=== PATIENT | female | born 1960 | race Hispanic/Latino ===

== ENCOUNTER 2017-12-10 05:15 | Emergency (ER) | payer OTHER ==
[2017-12-10 05:25] VITALS: RESP 20
[2017-12-10] MEDS ORDERED: Sodium Chloride 0.9% 1,000 ML IV ONE (05:29)
--- NOTE | 2017-12-10 05:37 | C.PDOC ---
History Of Present Illness 57 year old female presents to the ER with complaints of sharp lower abdominal pain, onset 2300 last night. She reports nausea and 2 episodes of loose watery diarrhea followed by an episode of bright red blood per rectum. She states she had similar episode one year ago and had colonscopy which was normal. Patient admits to constipation, but has been having normal bowel movements for the last few days. She denies any associated vomiting, chest pain or shortness of breath. She did not take any medication for her symptoms. Time Seen by Provider: 12/10/17 05:29 Chief Complaint (Nursing): Abdominal Pain History Per: Patient History/Exam Limitations: no limitations Onset/Duration Of Symptoms: Hrs Current Symptoms Are (Timing): Still Present Location Of Pain/Discomfort: RLQ, LLQ Radiation Of Pain To:: None Quality Of Discomfort: Sharp, Cramping, "Pain" Associated Symptoms: Nausea, Diarrhea. denies: Fever, Chills, Vomiting Alleviating Factors: None Last Bowel Movement: Today Abnormal Vaginal Bleeding: No Past Medical History Reviewed: Historical Data, Nursing Documentation, Vital Signs Vital Signs: Last Vital Signs Temp 97.4 F L 12/10/17 05:19 Pulse 94 H 12/10/17 05:19 Resp 20 12/10/17 05:19 BP 96/64 L 12/10/17 05:19 Pulse Ox 99 12/10/17 06:24 - Medical History PMH: No Chronic Diseases Surgical History: No Surg Hx Family History: States: No Known Family Hx - Social History Hx Alcohol Use: Yes Hx Substance Use: No - Immunization History Hx Tetanus Toxoid Vaccination: No Hx Influenza Vaccination: Yes Hx Pneumococcal Vaccination: No Review Of Systems Constitutional: Negative for: Fever, Chills Eyes: Negative for: Redness Cardiovascular: Negative for: Chest Pain Respiratory: Negative for: Shortness of Breath Gastrointestinal: Positive for: Abdominal Pain, Diarrhea, Hematochezia. Negative for: Nausea, Vomiting, Rectal Pain Genitourinary: Negative for: Dysuria Skin: Negative for: Rash Neurological: Negative for: Headache Physical Exam - Physical Exam Appears: Well, Non-toxic, No Acute Distress Skin: Normal Color, Warm, Dry Head: Atraumatic, Normacephalic Eye(s): bilateral: Normal Inspection, EOMI Nose: Normal Oral Mucosa: Moist Neck: Normal ROM, Supple Chest: Symmetrical Cardiovascular: Rhythm Regular, No Murmur Respiratory: Normal Breath Sounds, No Rales, No Rhonchi, No Wheezing Gastrointestinal/Abdominal: Bowel Sounds, Soft, Tenderness (tenderness on palpation to bilateral lower quadrants), No Mass, No Distention, No Guarding Rectal: Normal Exam, Rectal Tone (normal), No Blood Streaked Stool, No Mass, No Tenderness Back: Normal Inspection, No CVA Tenderness, No Vertebral Tenderness, No Paraspinal Tenderness Extremity: Bilateral: Atraumatic, Normal ROM Neurological/Psych: Oriented x3, Normal Speech Gait: Steady ED Course And Treatment - Laboratory Results Result Diagrams: 12/10/17 06:01 O2 Sat by Pulse Oximetry: 99 (RA) Pulse Ox Interpretation: Normal Medical Decision Making Medical Decision Making: Impression: Abdominal pain w/ bloody diarrhea Plan: * Labs * Protonix * Zofran * UA * IV Fluids * CT A/P Progress: 623 CBC shows slightly elevated WBC. Negative stool occulty. normal coags Case signed out to JOSELIN Louise, pending labs and dispo. 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 - Scribe Statement The provider has reviewed the documentation as recorded by the Scribe (Christen Mcclendon) Provider Attestation: All medical record entries made by the Scribe were at my direction and personally dictated by me. I have reviewed the chart and agree that the record accurately reflects my personal performance of the history, physical exam, medical decision making, and the department course for this patient. I have also personally directed, reviewed, and agree with the discharge instructions and disposition. Physician Patient Turnover Patient Signed Over To: Kristy Louise Handoff Comments: Pending Ct abdomen and dispo
[2017-12-10] MEDS ORDERED: Sodium Chloride 0.9% 1,000 ML ONE (05:56)
[2017-12-10 06:05] LABS: BASO # 0.1 K/uL (0.0-0.2); BASO % 0.6 % (0.0-2.0); EOS % 0.2 % (0.0-4.0); HEMOGLOBIN 13.8 g/dL (11.0-16.0); LYMPH # 1.5 K/uL (1.0-4.3); LYMPH % 13.2 % (20.0-40.0); MEAN CELL VOLUME 82.1 fL (81.0-99.0); MEAN CORPUSCULAR HEMOGLOBIN 27.5 pg (27.0-31.0); MEAN CORPUSCULAR HGB CONC 33.5 g/dL (33.0-37.0); MEAN PLATELET VOLUME 7.4 fL (7.2-11.7); MONO # 0.6 K/uL (0.0-0.8); MONO % 5.4 % (0.0-10.0); NEUT # 9.2 K/uL (1.8-7.0); NEUT % 80.6 % (50.0-75.0); RBC 5.02 Mil/uL (3.80-5.20); WHITE BLOOD COUNT 11.5 K/uL (4.8-10.8)
[2017-12-10 06:19] LABS: PROTHROMBIN TIME 10.7 SECONDS (9.7-12.2)
[2017-12-10 06:39] LABS: ALB/GLOB RATIO 1.3 (1.0-2.1); ALBUMIN 4.3 g/dL (3.5-5.0); BLOOD UREA NITROGEN 14 mg/dL (7-17); CALCIUM 9.8 mg/dl (8.6-10.4); GFR AFRICAN-AMERICAN > 60; GFR NON-AFRICAN AMERICAN > 60
[2017-12-10 06:40] LABS: ALT/SGPT 30 U/L (9-52); AST/SGOT 30 U/L (14-36); LIPASE 55 U/L (23-300)
[2017-12-10] MEDS ORDERED: Iodixanol 320 MG/ML 100 ML BOTTLE IV ONE (07:45)
[2017-12-10 08:34] LABS: SQUAMOUS EPITHIAL < 1 /hpf (0-5); URINE BILIRUBIN NEGATIVE (NEGATIVE); URINE BLOOD NEGATIVE (NEGATIVE); URINE CLARITY Clear (Clear); URINE COLOR Colorless (YELLOW); URINE GLUCOSE (UA) NORMAL (Normal); URINE LEUKOCYTE ESTERASE 1+ Leu/uL (Negative); URINE NITRATE NEGATIVE (NEGATIVE); URINE PROTEIN NEGATIVE (NEGATIVE); URINE UROBILINOGEN NORMAL mg/dL (0.2-1.0)
--- NOTE | 2017-12-10 09:38 | CT ---
CT abdomen and pelvis History: Lower abdominal pain. Diarrhea. Comparison: None available. Technique: Multiple contiguous axial images were performed through the abdomen and pelvis with the ofintravenous contrast. Subsequently, sagittal and coronal reformatted images were obtained. This CT exam was performed using one or more of the following dose reduction techniques: Automated exposure control, adjustment of the mA and/or kV according to patient size, and/or use of iterative reconstruction technique. Findings: 3 millimeter pulmonary nodule along the lateral aspect of the right middle lobe on series 3, image 5. No pleural or pericardial effusion. Mild fatty infiltration of the liver. Gallbladder is preserved. Spleen is preserved. Adrenal glands are preserved. Pancreas is preserved. Small hiatal hernia. Right kidney: 8 millimeter hypodensity, too small to adequately characterize, in the midpole of the right kidney. No calculi or hydronephrosis. Left Kidney: No calculi or hydronephrosis. Urinary bladder is grossly preserved. Evaluation of the lower abdominal bowel demonstrates mucosal thickening of the descending and sigmoid colon which may represent an underlying colitis. Underdistended transverse colon. Fecal retention in the right hemicolon. Appendix appears to be visualized on series 3, images 116 through 125. Proximal portion of the appendix appears prominent measuring up to 1.1 centimeters. Air-filled distal portion of the appendix. These findings are nonspecific. Clinical correlation. Few shotty para-aortic lymph nodes. Degenerative changes in the spine. Impression: Mucosal thickening of the descending and sigmoid colon which may represent an underlying colitis. Clinical correlation. Prominence of the appendix measuring up to 1.1 centimeters as described above.Clinical correlation. Additional findings as above.
[2017-12-10 10:32] VITALS: BP 116/68; PULSE 68; TEMP 98.1; O2SAT 99
== END 2017-12-10 10:52 | disposition home or self-care (01) ==
LOC: C.ER 05:15
DX: R10.30 Lower abdominal pain, unspecified (principal); R19.7 Diarrhea, unspecified
CPT/HCPCS: 74177; 80053; 81001; 83690; 85025; 85610; 85730; 96361; 96374; 96375; 99285; C9113; G0328; J1885; J2405; J7040; Q9967